=== PATIENT | male | born 1985 | race Caucasian/White ===

== ENCOUNTER 2020-02-10 00:06 | Emergency (ER) | payer BC, OTHER ==
[2020-02-10] MEDS ORDERED: fentaNYL 100 MCG/2 ML SDV ONE (00:14)
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
[2020-02-10] MEDS ORDERED: Lactated Ringers 1,000 ML IV ONE (00:19)
[2020-02-10] MEDS: fentaNYL 100 MCG/2 ML SDV IVPUSH STA ×2 (00:19→01:05)
[2020-02-10] MEDS ORDERED: ceFAZolin 2 GM in Premix Bag 1 BAG IV ONE (00:19)
[2020-02-10] MEDS ORDERED: Lactated Ringers 1,000 ML IV SCH (00:30)
--- NOTE | 2020-02-10 07:18 | CR ---
Right hand: 3 views of the right hand were obtained. Comparison: No prior right hand study is available. Soft tissue and bony amputation is noted within the distal 5th finger. Bony amputation is seen close to the DIP joint. Fracture is noted within the distal proximal phalanx and within the middle phalanx of the 4th digit which involves the PIP joint. Mild displacement is seen. No additional fracture or other bony abnormality is appreciated. Impression: 1. Fractures within the 4th finger as described above. 2. 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 Diagnostic code #3 This report was dictated in MDT
== END 2020-02-10 01:45 ==
LOC: JD.ED 00:06
DX: S61.431A Puncture wound without foreign body of right hand, initial encounter (principal); Z20.828 Contact with and (suspected) exposure to other viral communicable diseases; W32.0XXA Accidental handgun discharge, initial encounter
CPT/HCPCS: 36415; 73130; 80053; 80307; 85025; 86850; 86900; 86901; 87635; 96365; 96375; 99285; J0690; J3010; J7120; 99284; U0002

== ENCOUNTER 2025-03-13 04:16 | Emergency (ER) | payer SELFPAY ==
[2025-03-13] MEDS ORDERED: Sodium Chloride 0.9% 10 ML Syringe FLUSH PRN (04:55)
[2025-03-13] MEDS: Ketorolac 30 MG/ML SDV IVPUSH ONE (05:15)
[2025-03-13] MEDS: Ketorolac 60 MG/2 ML SDV IM ONE (05:17)
[2025-03-13 05:39] LABS: A/G RATIO 1.1 (1-2); ALANINE AMINOTRANSFERASE,ALT 47.0 U/L (16-63); ASPARTATE AMNIOTRANSFERASE,AST 18.0 U/L (15-37); BASOPHILS ABSOLUTE AUTO 0.0 K/mm3 (0.0-0.2); BASOPHILS PERCENT AUTO 0.3 % (0.0-1.0); BILIRUBIN TOTAL 0.3 mg/dL (0.2-1.0); BLOOD UREA NITROGEN,BUN 16.0 mg/dL (7-18); CARBON DIOXIDE,CO2 26.0 mEq/L (21-32); CHLORIDE,CL 103.0 mEq/L (98-107); CREATININE 1.0 mg/dL (0.7-1.3); EOSINOPHILS ABSOLUTE AUTO 0.4 K/mm3 (0.0-0.4); EOSINOPHILS PERCENT AUTO 4.7 % (0.0-6.0); EST CRCL DRUG DOSING (CG) 90.38 mL/min; ESTIMATED GFR 99.0 mL/min (>60); GLUCOSE RANDOM 105.0 mg/dL (70-99); IMMATURE GRAN ABSOLUTE AUTO 0.03 K/mm3 (0.00-0.05); IMMATURE GRAN PERCENT AUTO 0.3 % (0.0-0.4); LYMPHOCYTES ABSOLUTE AUTO 2.6 K/mm3 (1.0-4.8); LYMPHOCYTES PERCENT AUTO 30.2 % (24.0-44.0); MEAN PLATELET VOLUME 10.2 fl (9.4-12.4); MONOCYTES ABSOLUTE AUTO 1.0 K/mm3 (0.0-0.8); MONOCYTES PERCENT AUTO 12.1 % (0.0-8.0); NEUTROPHILS ABSOLUTE AUTO 4.5 K/mm3 (1.8-7.7); NEUTROPHILS PERCENT AUTO 52.4 % (41.0-71.0); NRBC ABSOLUTE 0.00 (0.00-0.02); NRBC PERCENT 0.0 % (0.0-0.2); PLATELET COUNT,PLT 254 K/mm3 (150-400); POTASSIUM,K 3.9 mEq/L (3.5-5.1); PROTEIN TOTAL,TP 7.8 g/dl (6.4-8.2); RED BLOOD CELL COUNT 5.49 M/mm3 (4.52-5.90); SODIUM,NA 139.0 mEq/L (136-145); WHITE BLOOD CELL COUNT,WBC 8.60 K/mm3 (3.9-11.3)
[2025-03-13] MEDS: Iopamidol 612 MG/ML 100 ML Bottle IVPUSH ONE (07:09)
== END 2025-03-13 08:51 | disposition home or self-care (01) ==
LOC: JD.ED 04:16
DX: M10.461 Other secondary gout, right knee (principal); Z79.899 Other long term (current) drug therapy
CPT/HCPCS: 36415; 73562; 73701; 80053; 84550; 85025; 86140; 93971; 96374; 99284; J1885; Q9967